=== PATIENT | female | born 1975 | race Caucasian/White ===

== ENCOUNTER 2022-01-03 08:00 | Outpatient (CLI) | payer BC, OTHER ==
--- NOTE | 2022-01-04 10:18 | XRAY Report ---
PROCEDURE: Chest 2 View X-Ray INDICATIONS: BACTERIAL PNEUMONIA TECHNIQUE: 2 view(s) of the chest. COMPARISON: None. FINDINGS: Surgical changes and devices: None. Lungs and pleura: No pleural effusions or pneumothorax. Minimal left basilar opacity is present, pro bably within the lingula. Mediastinum: Mediastinal contours are normal. Heart size is normal. Bones and chest wall: No suspicious bony abnormalities. Soft tissues appear unremarkable. IMPRESSION: Minimal nonspecific left basilar opacity is present. This could represent atelectasis or mediastinal adipose tissue, but aspiration or pneumonia are also possible in the appropriate clinical setting. Reviewed by: Tam Clayton MD on 01/04/2022 10:17 AM PDT Approved by: aTm Clayton MD on 01/04/2022 10:17 AM PDT Station ID: [id number]
== END 2022-01-03 23:59 | disposition home or self-care (01) ==
LOC: DI.N 08:00
PROVIDERS: ATTEND Physician Assistant Medical
DX: J15.9 Unspecified bacterial pneumonia (principal)

== ENCOUNTER 2023-01-16 13:30 | Outpatient (CLI) | payer BC | END 2023-01-16 13:45 | disposition home or self-care (01) | LOC: LAB.N 13:30 | PROVIDERS: ATTEND Physician Assistant Medical | DX: B08.4 Enteroviral vesicular stomatitis with exanthem (principal) | CPT/HCPCS: 87070 ==

== ENCOUNTER 2023-08-26 10:49 | Outpatient (CLI) | payer BC ==
--- NOTE | 2023-08-26 14:15 | XRAY Report ---
PROCEDURE: Cervical Spine 2-3V INDICATIONS: CERVICAL RADICULOPATHY/THORACIC BACK PAIN TECHNIQUE: 3 view(s) of the cervical spine were acquired. COMPARISON: None. FINDINGS: Bones: No fractures or dislocations to the T1 level. Mild multilevel disc height loss and slight unc overtebral joint hypertrophy from C4 through C7. The lateral masses of C1 appear intact on the odonto id view. No suspicious bony lesions. Soft tissues: No prevertebral soft tissue swelling. IMPRESSION: No acute cervical fracture or traumatic subluxation. Reviewed by: Pamela Roman MD on 08/26/2023 2:14 PM PDT Approved by: Pamela Roman MD on 08/26/2023 2:14 PM PDT Station ID: [id number]
--- NOTE | 2023-08-26 14:16 | XRAY Report ---
PROCEDURE: Thoracic Spine 2V INDICATIONS: THORACIC BACK PAIN TECHNIQUE: 2 views of the thoracic spine were acquired. COMPARISON: None. FINDINGS: Bones: No fractures or dislocations. No suspicious bony lesions. 12 pairs of ribs are noted, and a ppear intact where visualized. Soft tissues: No paravertebral stripe thickening. IMPRESSION: No acute bony abnormality. No significant degenerative change. Reviewed by: Pamela Roman MD on 08/26/2023 2:14 PM PDT Approved by: Pamela Roman MD on 08/26/2023 2:14 PM PDT Station ID: [id number]
== END 2023-08-26 10:50 | disposition home or self-care (01) ==
LOC: DI 10:49
PROVIDERS: ATTEND Family Medicine
DX: M47.812 Spondylosis without myelopathy or radiculopathy, cervical region (principal)